=== PATIENT | male | born 1970 | race Caucasian/White ===

== ENCOUNTER 2021-10-18 12:06 | Emergency (ER) | payer SELFPAY ==
[~2021-10-18] VITALS: Ht 177.8 cm; Wt 73.0 kg
[2021-10-18] MEDS ORDERED: BACTRIM DS1 TAB PO ×2 (14:27→15:21)
[2021-10-18] MEDS ORDERED: CEPHALEXIN500 MG PO ×2 (14:27→15:21)
[2021-10-18 15:18] VITALS: BP 128/70
== END 2021-10-18 15:18 | disposition home or self-care (01) | DRG 603 ==
LOC: ED 12:06
PROC: 0H97XZZ Drainage of Abdomen Skin, External Approach (ICD-10-PCS; principal; 2021-10-18)
DX: L02.211 Cutaneous abscess of abdominal wall (principal); F32.A Depression, unspecified; F17.210 Nicotine dependence, cigarettes, uncomplicated

== ENCOUNTER 2022-03-31 22:10 | Emergency (ER) | payer SELFPAY ==
[~2022-03-31] VITALS: Ht 177.8 cm; Wt 70.4 kg
[~2022-03-31 22:10] MED LIST: BACTRIM DS1 TAB PO; CEPHALEXIN500 MG PO
[2022-03-31 22:18] VITALS: BP 145/90
[2022-03-31 22:30] VITALS: BP 144/90
[2022-03-31 22:52] LABS: HEMATOCRIT 41.5 % (39.0-50.0); HEMOGLOBIN 13.5 g/dl (14.0-18.0); IMMATURE GRANULOCYTES 0.2 % (0.0-5.0); MEAN CELL VOLUME 97.4 fL CALC (80.0-100.0); MEAN CORPUSCULAR HGB 31.7 pG CALC (26.0-32.0); MEAN CORPUSCULAR HGB CONC 32.5 g/dL CAL (32.0-36.0); NEUT# 8.24 thou/uL (1.82-7.42); RED BLOOD COUNT 4.26 mill/uL (4.70-6.10)
[2022-03-31 23:00] VITALS: BP 136/79
[2022-03-31 23:12] LABS: ALKALINE PHOSPHATASE 46 u/l (38-126); ANION GAP 10 (6-22 (CALC)); BILIRUBIN, TOTAL 0.4 mg/dL (0.0-1.4); BUN 17 mg/dL (9-20); BUN/CREATININE RATIO 24 (12-20 (CALC)); CARBON DIOXIDE 25 mmol/l (22-30); CHLORIDE 108 mmol/l (95-108); CREATININE 0.7 mg/dL (0.7-1.3); GFR FOR AFR.AMER. > 60 ML/MIN (>=60 (CALC)); GFR OTHER RACES > 60 ML/MIN (>=60 (CALC)); POTASSIUM 4.5 mmol/l (3.5-5.1); SGOT/AST 55 u/l (17-59); SODIUM 139 mmol/l (137-146); TOTAL PROTEIN 6.8 g/dL (6.3-8.2)
[2022-03-31] MEDS ORDERED: LORTAB 1010 MG PO (23:24)
[2022-03-31] MEDS ORDERED: BACTRIM DS1 TAB PO (23:24)
[2022-03-31] MEDS ORDERED: KEFLEX500 MG PO (23:24)
[2022-03-31 23:30] VITALS: BP 123/84
[2022-04-01 00:01] VITALS: BP 104/57
== END 2022-04-01 00:10 | disposition home or self-care (01) | DRG 603 ==
LOC: ED 22:10
PROVIDERS: Emergency Medicine
PROC: 0H98XZZ Drainage of Buttock Skin, External Approach (ICD-10-PCS; principal; 2022-03-31)
PROC: 0H9HXZZ Drainage of Right Upper Leg Skin, External Approach (ICD-10-PCS; 2022-03-31)
DX: L02.415 Cutaneous abscess of right lower limb (principal); L02.31 Cutaneous abscess of buttock; F32.A Depression, unspecified; F17.200 Nicotine dependence, unspecified, uncomplicated

== ENCOUNTER 2022-04-03 07:58 | Emergency (ER) | payer SELFPAY ==
[~2022-04-03] VITALS: Ht 177.8 cm; Wt 72.7 kg
[~2022-04-03 07:58] MED LIST changes: +KEFLEX500 MG PO; +LORTAB 1010 MG PO
[2022-04-03 08:04] VITALS: BP 161/98
[2022-04-03 08:45] VITALS: BP 161/98
== END 2022-04-03 08:45 | disposition home or self-care (01) | DRG 951 ==
LOC: ED 07:58
DX: Z48.01 Encounter for change or removal of surgical wound dressing (principal); F17.210 Nicotine dependence, cigarettes, uncomplicated

== ENCOUNTER 2022-05-08 23:23 | Emergency (ER) | payer SELFPAY ==
[~2022-05-08] VITALS: Ht 177.8 cm; Wt 72.0 kg
[2022-05-08 23:33] VITALS: BP 121/78
[2022-05-08 23:38] VITALS: BP 121/78
[2022-05-08] MEDS ORDERED: VIBRAMYCIN100 M2 PO (23:44)
== END 2022-05-09 00:04 | disposition home or self-care (01) | DRG 607 ==
LOC: ED 23:23
DX: L73.9 Follicular disorder, unspecified (principal); F17.200 Nicotine dependence, unspecified, uncomplicated